=== PATIENT | female | born 1945 | race Caucasian/White ===

== ENCOUNTER 2024-02-15 21:21 | Emergency (ER) | payer MEDICARE, OTHER ==
[2024-02-15] MEDS: Acetaminophen 500 MG Tab PO ONE (22:13)
[2024-02-15] MEDS: Ibuprofen 400 MG Tab PO ONE (22:14)
== END 2024-02-15 23:14 | disposition home or self-care (01) ==
LOC: MW.ED 21:21
DX: S52.124A Nondisplaced fracture of head of right radius, initial encounter for closed fracture (principal); I10 Essential (primary) hypertension; E78.00 Pure hypercholesterolemia, unspecified; E11.9 Type 2 diabetes mellitus without complications; Z88.0 Allergy status to penicillin; Z88.2 Allergy status to sulfonamides; W01.0XXA Fall on same level from slipping, tripping and stumbling without subsequent striking against object, initial encounter; Y93.01 Activity, walking, marching and hiking
CPT/HCPCS: 73080; 73110; 73130; 99283; A9270